=== PATIENT | female | born 1950 | race Caucasian/White ===

== ENCOUNTER → 2018-10-06 | Outpatient (REF) | payer MEDICARE, OTHER | LOC: M SFHCPLAZ 10:04 | PROVIDERS: ATTEND Dermatology | DX: C44.629 Squamous cell carcinoma of skin of left upper limb, including shoulder (principal); D23.30 Other benign neoplasm of skin of unspecified part of face ==

== ENCOUNTER → 2018-12-06 | Outpatient (REF) | payer MEDICARE, BC, OTHER | LOC: M SFHCPLAZ 17:24 | PROVIDERS: ATTEND Dermatology | DX: L90.5 Scar conditions and fibrosis of skin (principal) ==

== ENCOUNTER → 2019-04-27 | Outpatient (REF) | payer MEDICARE, OTHER | LOC: M SFHCPLAZ 11:03 | PROVIDERS: ATTEND Dermatology | DX: D23.30 Other benign neoplasm of skin of unspecified part of face (principal) ==

== ENCOUNTER → 2020-04-30 | Outpatient (REF) | payer MEDICARE, OTHER | LOC: M LAB REF 14:02 | PROVIDERS: ATTEND Dermatology | DX: D23.4 Other benign neoplasm of skin of scalp and neck (principal) ==

== ENCOUNTER → 2022-07-27 | Outpatient (REF) | payer MEDICARE, OTHER | LOC: M SFHCDERM 13:53 | PROVIDERS: ATTEND Physician Assistant | DX: L57.0 Actinic keratosis (principal); L57.8 Other skin changes due to chronic exposure to nonionizing radiation ==

== ENCOUNTER 2024-07-27 06:45 | Day surgery (SDC) | payer MEDICARE, BC ==
[~2024-07-27] VITALS: Ht 160 cm; Wt 54.2 kg
[~2024-07-27 06:45] MED LIST: ALEN70TA82 PO; B-12100010 PO; BIOT1CAP2 PO; CALC600T86 PO; CETI10CA13 PO; CIPROFLOXACIN 400 MG in IV 1 EA IV ONE; CLAR10CA3 PO; EQL50TAB2 PO; LEVO112T2 PO; MULTTAB61 PO; OMEGCAP4 PO; TIMO0.5S20; VITA30004 PO
[2024-07-27] MEDS ORDERED: LIDOCAINE 2% 100MG/5ML SDV (FOR ANES.) As Ordered ONE (07:18)
[2024-07-27] MEDS ORDERED: propofoL 200 MG/20 ML VIAL As Ordered ONE (07:18)
[2024-07-27] MEDS ORDERED: fentaNYL 100 MCG/2 ML INJECTION As Ordered ONE (07:18)
[2024-07-27] MEDS ORDERED: ONDANSETRON 4MG 2ML VIAL As Ordered ONE (07:19)
[2024-07-27] MEDS ORDERED: LR 1,000 ML IV SCH (07:45)
[2024-07-27] MEDS: ceFAZolin SOD 2 GM in IV 1 EA IV ONE (08:41)
[2024-07-27] MEDS ORDERED: ACETAMINOPHEN 1000MG/100ML IV BAG As Ordered ONE (08:59)
[2024-07-27 09:49] VITALS: BP 137/97; TEMP 97.2; O2SAT 100
== END 2024-07-27 09:55 | disposition home or self-care (01) ==
LOC: M SDC 06:45
PROVIDERS: ATTEND Urology
DX: N20.0 Calculus of kidney (principal); E89.0 Postprocedural hypothyroidism; Z79.890 Hormone replacement therapy; Z79.899 Other long term (current) drug therapy; Z88.0 Allergy status to penicillin; Z88.1 Allergy status to other antibiotic agents; Z88.2 Allergy status to sulfonamides
CPT/HCPCS: 50590; 74018; J0131; J0690; J1100; J2405; J3010

== ENCOUNTER → 2024-08-15 | Outpatient (REF) | payer MEDICARE, OTHER ==
[~2024-08-15] MED LIST changes: -CIPROFLOXACIN 400 MG in IV 1 EA IV ONE
== END ==
LOC: M SMT 12:30
PROVIDERS: ATTEND Physician Assistant
DX: N20.0 Calculus of kidney (principal)

== ENCOUNTER → 2024-10-09 | Outpatient (REF) | payer MEDICARE, OTHER, BC | LOC: M SFHCDERM 17:45 | PROVIDERS: ATTEND Physician Assistant | DX: D48.9 Neoplasm of uncertain behavior, unspecified (principal) ==